=== PATIENT | male | born 1955 | race African-American/Black ===

== ENCOUNTER 2020-04-22 08:02 | Outpatient (CLI) | payer OTHER ==
--- NOTE | 2020-04-22 14:23 | RAD ---
EXAM: Chest 2 views: HISTORY: Preoperative radiograph COMPARISON: None. FINDINGS: There is a normal-sized cardiomediastinal silhouette. There is no evidence of consolidation, mass, or pleural effusion. The bones are unremarkable. IMPRESSION: No evidence of acute cardiopulmonary disease
[2020-04-22 16:17] LABS: Hemoglobin 13.3 g/dL (14.0-18.0); Mean Corpuscular HGB CONC 32.9 g/dL (32.0-36.0); Mean Corpuscular Hemoglobin 26.2 pg (27.0-31.0); Mean Corpuscular Volume 79.8 fL (78.0-98.0); Mean Platelet Volume 10.8 fL (7.4-10.4); Platelet Count 208 thou/uL (130-400); RBC Distribution Width 13.2 % (11.5-14.5); Red Blood Cell (RBC) Count 5.08 mill/uL (4.70-6.10); White Blood Cell (WBC) Count 7.6 thou/uL (4.8-10.8)
[2020-04-22 16:26] LABS: Anion Gap 13 mmol/L (10-20); BUN (Urea Nitrogen) 20 mg/dL (8.4-25.7); Calc. Creatinine Clearance 0 mL/min (70-130); Calcium 8.5 mg/dL (7.8-10.44); Carbon Dioxide 24 mmol/L (23-31); Chloride 108 mmol/L (98-107); Estimated GFR-MDRD 61; Glucose 97 mg/dL (80-115); Potassium 3.7 mmol/L (3.5-5.1); Sodium 141 mmol/L (136-145)
== END 2020-04-22 08:03 | disposition home or self-care (01) ==
LOC: LABBT 08:02
PROVIDERS: ATTEND Thoracic Surgery (Cardiothoracic Vascular Surgery)
DX: Z01.818 Encounter for other preprocedural examination (principal); Z11.59 Encounter for screening for other viral diseases; I25.10 Atherosclerotic heart disease of native coronary artery without angina pectoris
CPT/HCPCS: 71046; 80048; 85027; 86850; 86900; 86901; 87635; U0003

== ENCOUNTER 2020-04-22 13:15 | Inpatient (IN) | payer OTHER ==
[2020-04-23 11:34] LABS: SARS-CoV-2 MS2 Positive; SARS-CoV-2 N Gene Negative; SARS-CoV-2 S Gene Negative; SARS-CoV-2 orf1ab Negative
[2020-04-27] MEDS ORDERED: Fentanyl 100 MCG/2 ML VIAL ONE (06:30)
[2020-04-27] MEDS ORDERED: Midazolam HCl 2 mg/2 ml Vial ONE (06:30)
[2020-04-27] MEDS ORDERED: Vecuronium 10 MG VIAL ONE ×3 (06:31→11:41)
[2020-04-27] MEDS ORDERED: Dexmedetomidine 200 MCG/2 ML VIAL ONE (06:31)
[2020-04-27] MEDS ORDERED: Midazolam HCl 5 mg/5 ml Vial ONE (06:31)
[2020-04-27] MEDS ORDERED: Albumin 5% 500 ML ONE (06:34)
[2020-04-27] MEDS ORDERED: Heparin 10,000 UNITS/1 ML VIAL 30,000 UNITS in Sodium Chloride 0.9% 1,000 ML FS SCH (06:45)
[2020-04-27] MEDS ORDERED: HYDROcodone/Acetaminophen 5/325 mg Tablet PO PRN (07:20)
[2020-04-27] MEDS ORDERED: Bisacodyl 10 MG SUPP PR PRN (07:20)
[2020-04-27] MEDS ORDERED: niCARdipine 25 MG in Sodium Chloride 0.9% 250 ML 250 ML IVPB PRN (07:20)
[2020-04-27] MEDS ORDERED: Fentanyl 100 MCG/2 ML VIAL SLOW IVP PRN ×2 (07:20)
[2020-04-27] MEDS ORDERED: Guaifenesin DM 100-10/5 ML UDCUP PO PRN (07:20)
[2020-04-27] MEDS ORDERED: Promethazine HCl 25 MG/ML VIAL IM PRN (07:20)
[2020-04-27] MEDS ORDERED: Ondansetron PF 4 MG/2 ML Vial IVP PRN (07:20)
[2020-04-27] MEDS ORDERED: Bisacodyl 5 MG TAB PO PRN (07:20)
[2020-04-27] MEDS ORDERED: Hetastarch 6% 500 ML 500 ML IVPB PRN (07:20)
[2020-04-27] MEDS ORDERED: Mag-Al 1200 mg/1200 mg/30 ML UDCUP PO PRN (07:20)
[2020-04-27] MEDS ORDERED: hydrALAZINE 20 MG/ML VIAL SLOW IVP PRN (07:20)
[2020-04-27] MEDS ORDERED: Morphine 2 MG/ML SYRINGE SLOW IVP PRN (07:20)
[2020-04-27] MEDS ORDERED: Norepinephrine 8 MG/0.9% NS 250 ML IVPB PRN (07:20)
[2020-04-27] MEDS ORDERED: Post-Op Insulin Drip Protocol IVPB ONE (07:20)
[2020-04-27] MEDS ORDERED: Nitroglycerin 50 MG/250 ML BOT 250 ML IVPB PRN (07:20)
[2020-04-27] MEDS ORDERED: Acetaminophen 325 MG TAB PO PRN (07:20)
[2020-04-27] MEDS ORDERED: HUMULIN R 100 UNITS in Sodium Chloride 0.9% 100 ML IVPB SCH (07:41)
[2020-04-27] MEDS ORDERED: Dextrose 50% Abboject 50 ML SYRINGE SLOW IVP PRN (07:41)
[2020-04-27] MEDS ORDERED: Dextrose 5% in Water 1,000 ML IV PRN (07:41)
[2020-04-27] MEDS ORDERED: Calcium Chloride 1 GM/10 ML Abboject SYRINGE ONE ×2 (08:40→11:41)
[2020-04-27] MEDS ORDERED: Aspirin 81 mg Enteric Coated Tablet PO SCH (09:00)
[2020-04-27] MEDS ORDERED: PHENYLEPHRINE-NS 100 MCG/ML 10 ML SYRINGE ONE ×2 (10:38→11:41)
[2020-04-27] MEDS ORDERED: Cardioplegic Soln 1,000 ML BAG ONE (11:41)
[2020-04-27] MEDS ORDERED: Nitroglycerin 50 MG/250 ML BOT ONE (11:41)
[2020-04-27] MEDS ORDERED: Thrombin 5000 UNITS/5 ML VIAL ONE (11:41)
[2020-04-27] MEDS ORDERED: Papaverine 60 MG/2 ML VIAL ONE (11:41)
[2020-04-27] MEDS ORDERED: Potassium Chloride 60 MEQ/30 ML VIAL ONE (11:41)
[2020-04-27] MEDS ORDERED: Lidocaine 2% PF 5 ML VIAL ONE (11:41)
[2020-04-27] MEDS ORDERED: Aminocaproic Acid 5 GM/20 ML VIAL ONE (11:41)
[2020-04-27] MEDS ORDERED: Glycopyrrolate 0.2 MG/ML 5 ML SYRINGE ONE (11:41)
[2020-04-27] MEDS ORDERED: Magnesium Sulfate 1 GM/2 ML VIAL ONE (11:41)
[2020-04-27] MEDS ORDERED: Heparin 30,000 units/30 ml VIAL ONE (11:41)
[2020-04-27] MEDS ORDERED: EPHEDRINE 25 MG/5 ML SYRINGE ONE (11:41)
[2020-04-27] MEDS ORDERED: Protamine Sulfate 250 MG/25 ML VIAL ONE (11:41)
[2020-04-27] MEDS ORDERED: Lidocaine 1% PF 5 ML VIAL ONE ×2 (11:41)
[2020-04-27] MEDS ORDERED: Ketorolac Tromethamine 30 MG/ML VIAL ONE (11:41)
[2020-04-27] MEDS ORDERED: Ondansetron PF 4 MG/2 ML Vial ONE (11:41)
[2020-04-27] MEDS ORDERED: Heparin 5,000 UNITS/ML VIAL ONE (11:41)
[2020-04-27] MEDS ORDERED: Sodium Bicarb 50 MEQ/50 ML Abboject 8.4% SYRINGE ONE (11:41)
[2020-04-27] MEDS: Aspirin Chewable 81 MG TAB PO SCH (12:13)
[2020-04-27] MEDS: Famotidine/PF 20 mg/2ml Vial SLOW IVP SCH ×2 (12:13→20:04)
[2020-04-27] MEDS: Ferrous Sulfate 325 MG TAB PO SCH (12:13)
[2020-04-27] MEDS: Docusate 100 MG CAP PO SCH ×2 (12:13→20:05)
[2020-04-27 12:53] LABS: #Eosinphils 0.1 thou/uL (0.0-0.7); #Lymphocytes 0.9 thou/uL (1.20-3.40); #Monocytes 1.2 thou/uL (0.11-0.59); #Neutrophils 12.6 thou/uL (1.40-6.50); %Basophils 0.1 % (0.0-1.0); %Eosinophils 0.6 % (0.0-10.0); %Lymphocytes 6.3 % (21.0-51.0); %Monocytes 8.3 % (0.0-10.0); %Neutrophils 84.7 % (42.0-75.0); Hemoglobin 11.5 g/dL (14.0-18.0); Mean Corpuscular HGB CONC 32.5 g/dL (32.0-36.0); Mean Corpuscular Volume 80.1 fL (78.0-98.0); Platelet Count 147 thou/uL (130-400); RBC Distribution Width 13.1 % (11.5-14.5); Red Blood Cell (RBC) Count 4.43 mill/uL (4.70-6.10); White Blood Cell (WBC) Count 14.9 thou/uL (4.8-10.8)
--- NOTE | 2020-04-27 12:58 | RAD ---
Chest AP view INDICATION: Status post open-heart surgery COMPARISON: April 22, 2020 FINDINGS: Lungs: There are areas of subsegmental volume loss involving the left upper and left lower lobe. Rig ht lung is clear. Cardiac silhouette: There is mild cardiomegaly. There is new midline sternotomy wires. There is a mi dline mediastinal drain. There is a new left subclavian central venous catheter. Pulmonary vasculature: Normal Pleural spaces: No pleural effusion or pneumothorax is demonstrated. Upper abdomen: No abnormality seen. Osseous structures: No acute osseous abnormality. Additional findings: None. IMPRESSION: Postoperative chest. No definite pneumothorax. Stable mild cardiomegaly. Areas of subsegmental volume loss in the left lung.
[2020-04-27 13:01] LABS: INR-International Normal Ratio 1.2; Prothrombin Time 15.2 sec (12.0-14.7)
[2020-04-27 13:02] LABS: PTT 41.4 sec (22.9-36.1)
[2020-04-27] MEDS: Sodium Chloride 0.9% 1,000 ML IV SCH ×2 (13:04→20:04)
[2020-04-27] MEDS: Insulin Regular 300 UNITS/3 ML VIAL SC PRN ×2 (13:16→20:04)
[2020-04-27 13:25] LABS: Anion Gap 11 mmol/L (10-20); BUN (Urea Nitrogen) 18 mg/dL (8.4-25.7); Calc. Creatinine Clearance 79 mL/min (70-130); Calcium 8.3 mg/dL (7.8-10.44); Carbon Dioxide 25 mmol/L (23-31); Chloride 110 mmol/L (98-107); Estimated GFR-MDRD 59; Glucose 125 mg/dL (80-115); Sodium 142 mmol/L (136-145)
[2020-04-27 13:28] VITALS: BMI 31.1
[2020-04-27] MEDS: Potassium Chloride 20 MEQ/100 ML PREMIX BAG IVPB PRN (14:14)
[2020-04-27 18:47] LABS: Hemoglobin 10.8 g/dL (14.0-18.0)
[2020-04-27 18:57] LABS: Potassium 4.1 mmol/L (3.5-5.1)
[2020-04-27] MEDS: HYDROcodone/Acetaminophen 5/325 mg Tablet PO PRN ×2 (19:16→23:34)
--- NOTE | 2020-04-27 20:57 | OP ---
DATE OF PROCEDURE: 04/27/2020 PROCEDURES PERFORMED: Coronary artery bypass grafting x4 with left internal mammary artery to the distal left anterior descending artery, sequential reverse greater saphenous vein graft from the aorta to the first diagonal to the posterolateral obtuse marginal 2 and separate reverse greater saphenous vein graft from the aorta to the posterior descending artery. PREOPERATIVE DIAGNOSIS: Coronary artery disease. POSTOPERATIVE DIAGNOSIS: Coronary artery disease. MANAGER COLLECTION: Deep Kelley MD ANESTHESIA: General endotracheal anesthesia. INDICATIONS: The patient is a 64-year-old former smoker with known coronary artery disease, having undergone previous stenting of his LAD. He has severe hypertension, and on a routine checkup recently, he was noted to be somewhat bradycardic prompting referral back to Cardiology. An outpatient potline monitor showed occasional PVCs and some nonsustained supraventricular tachycardia, but a good left ventricular ejection fraction on nuclear stress testing. There was a small reversible defect anteriorly, but on cardiac catheterization, he had diffuse coronary artery disease including a high-grade cleft like lesion fairly proximally in the LAD where both the first septal dehydration unit operator and a large first diagonal arose. He is now taken to the operating room for surgical revascularization. FINDINGS: Pump time 95 minutes, cross-clamp time 60 minutes. Good quality CARMEN and saphenous vein. All of his coronaries were diffusely diseased, particularly the diagonal and the PDA. The LAD was about a 1.5 to 2 mm vessel distally. The diagonal was about a 1.5 to 2 mm vessel proximally, but distally it tapered down to about a 1 mm lumen. The OM was about a 1.5 mm vessel. The heart was very large. DESCRIPTION OF PROCEDURE: After informed consent was obtained, the patient was taken to the operating room, placed in the supine position on the operating table. After the induction of general anesthesia, the patient's left greater saphenous vein was ultrasonographically mapped and marked. His left chest was prepped and draped in sterile fashion, and he was placed in Trendelenburg. A triple-lumen central line kit was used to place a left subclavian central line by the Seldinger technique. All 3 ports were aspirated and flushed easily. The line was secured to the skin with suture. The patient's torso, groins, and lower extremities were prepped and draped in sterile fashion. The greater saphenous vein was exposed just above the knee on the left side and then endoscopically harvested from about the groin to the mid-calf using stab incisions for the proximal and distal ligation and division point. The vein was prepared for use as a graft, and the port site was closed in layers of subcutaneous and subcuticular Vicryl. A median sternotomy was performed. The left internal mammary artery was mobilized as a skeletonized in-situ graft from the level of the xiphoid to the level of the subclavian vein through an extrapleural exposure. The patient was heparinized. The mammary was ligated and divided distally. There was good flow through the mammary, and it dilated nicely with the instillation of intraluminal papaverine solution. A few areas of small violations of the pleura anteriorly toward the diaphragmatic surface were repaired with 6-0 Prolene suture, and the medial reflections of the pleura were mobilized. The mammary bed was inspected for hemostasis. An CARMEN retractor was placed with a Agosto retractor. The pericardium was opened and marsupialized. The aorta was palpated and was soft. A double concentric pursestring of 2-0 Ethibond was placed in the ascending aorta just beyond the pericardial reflection, and a single pursestring was placed in the right atrial appendage. Aortic and venous cannulae were inserted and secured by their pursestrings. Cardiopulmonary bypass was instituted, and the patient was systemically cooled. The plane between the aorta and the pulmonary artery was developed. A longitudinal slit was made in the pericardium anterior to the left phrenic nerve, through which the mammary could be passed. The heart was examined. The vessel to be bypassed was identified. An aortic cross-clamp was applied, and cardioplegia was administered through an aortic root needle. The PDA was exposed and had to be opened fairly distally to get beyond hard to plaquing. The greater saphenous vein was reversed and anastomosed there end-to-side with running Prolene suture, and the anastomosis was tested by flushing cold saline down the graft. Attention was then turned to the posterolateral aspect of the heart. The OM2 was exposed and opened and grafted end-to-side with saphenous vein and running Prolene suture. There was not sufficient vein to separately graft the diagonal, and it was opted to construct a sequential graft. The diagonal was opened, and a corresponding longitudinal venotomy was made in the OM graft, and a [id number] anastomosis was constructed orienting the anastomosis perpendicular to the axis of the coronary and using a 1 mm probe to identify the lumen of the coronary at the toe. The LAD was then opened, and the mammary was divided just at its bifurcation, spatulated and anastomosed to the LAD end-to-side with running 7-0 Prolene, it was tacked to the epicardium. The aortic cross-clamp was replaced with a partial occluding clamp, and two aortotomies were made in the ascending aorta with a scalpel and punch. The PDA graft was anastomosed to the more proximal aortotomy, and the sequential diagonal OM graft was anastomosed to the more distal aortotomy. The partial occluding clamp was removed, and the vein grafts were de-aired. The bulldogs were removed from them. The anastomoses were inspected for hemostasis. The proximal vein graft anastomoses were marked with small hemoclips. The posterior pericardial drain was brought out through a separate incision and secured with suture. Right atrial and right ventricular temporary epicardial pacing wires were placed with the use of pacing. The patient was then from cardiopulmonary bypass. Aortic and venous cannulae were removed, and the pursestring was secured. Protamine was administered. When hemostasis was adequate, an anterior mediastinal drain was placed. It was not feasible to perform a formal closure of the pericardium because of the size of the heart. The mediastinal and pericardial fat were draped across the aorta on the anterior surface of the heart and tacked to the right side of the pericardium superiorly and at the diaphragmatic surface. The cut surfaces of the sternum were treated with vancomycin paste and platelet-rich GPS. Sternum was reapproximated with #7 stainless steel wires. Soft tissues were irrigated and treated with platelet-poor GPS. The fascia was closed over the wires with running #1 Vicryl. Subcutaneous tissue was reapproximated with running 2-0 Vicryl, and skin was closed with running 3-0 Vicryl subcuticular suture. Dermabond dressings were applied, and the patient was awakened and extubated in the operating room, and taken to the intensive care in stable condition. Job ID: [id number]
[2020-04-28 04:11] LABS: #Lymphocytes 1.1 thou/uL (1.20-3.40); #Monocytes 1.2 thou/uL (0.11-0.59); #Neutrophils 8.2 thou/uL (1.40-6.50); %Basophils 0.3 % (0.0-1.0); %Eosinophils 0.1 % (0.0-10.0); %Lymphocytes 10.5 % (21.0-51.0); %Monocytes 11.2 % (0.0-10.0); Hemoglobin 9.7 g/dL (14.0-18.0); Mean Corpuscular HGB CONC 31.8 g/dL (32.0-36.0); Mean Corpuscular Hemoglobin 25.4 pg (27.0-31.0); Mean Platelet Volume 10.7 fL (7.4-10.4); Platelet Count 152 thou/uL (130-400); RBC Distribution Width 13.2 % (11.5-14.5); Red Blood Cell (RBC) Count 3.81 mill/uL (4.70-6.10); White Blood Cell (WBC) Count 10.6 thou/uL (4.8-10.8)
[2020-04-28 04:31] LABS: Anion Gap 13 mmol/L (10-20); BUN (Urea Nitrogen) 24 mg/dL (8.4-25.7); Calc. Creatinine Clearance 68 mL/min (70-130); Calcium 7.6 mg/dL (7.8-10.44); Carbon Dioxide 23 mmol/L (23-31); Chloride 110 mmol/L (98-107); Estimated GFR-MDRD 48; Glucose 108 mg/dL (80-115); Potassium 3.8 mmol/L (3.5-5.1); Sodium 142 mmol/L (136-145)
[2020-04-28] MEDS: Potassium Chloride 20 MEQ/100 ML PREMIX BAG IVPB PRN (04:51)
--- NOTE | 2020-04-28 07:47 | RAD ---
EXAM: Single view of the chest HISTORY: Status post open heart surgery COMPARISON: 04/27/2020 FINDINGS: Single view of the chest shows an enlarged but stable cardiomediastinal silhouette. The pa tient is status post sternotomy. The chest tubes and central catheter are unchanged in position. There appears to be atelectasis in the left lung base. The bones are unremarkable. IMPRESSION: Left basilar atelectasis
[2020-04-28] MEDS: Aspirin Chewable 81 MG TAB PO SCH (08:43)
[2020-04-28] MEDS: Famotidine/PF 20 mg/2ml Vial SLOW IVP SCH (08:43)
[2020-04-28] MEDS: Sodium Chloride 0.9% 1,000 ML IV SCH ×3 (08:43→20:40)
[2020-04-28] MEDS: Ferrous Sulfate 325 MG TAB PO SCH (08:43)
[2020-04-28] MEDS: Docusate 100 MG CAP PO SCH ×2 (08:43→20:40)
[2020-04-28] MEDS ORDERED: diphenhydrAMINE 25 MG CAP PO PRN (11:08)
[2020-04-28] MEDS ORDERED: Mineral Oil ENEMA PR PRN (11:08)
[2020-04-28] MEDS ORDERED: Zolpidem Tartrate 5 MG TAB PO PRN (11:08)
[2020-04-28] MEDS ORDERED: Artificial Tears 18 DROP/0.9 ML EA EYE PRN (11:08)
[2020-04-28] MEDS ORDERED: Nitroglycerin 0.4 MG TAB (25 Tab Bottle) SL PRN (11:08)
[2020-04-28] MEDS ORDERED: Guaifenesin DM 100-10/5 ML UDCUP PO PRN (11:08)
[2020-04-28] MEDS ORDERED: Bisacodyl 10 MG SUPP PR PRN (11:08)
[2020-04-28] MEDS ORDERED: Bisacodyl 5 MG TAB PO PRN (11:08)
[2020-04-28] MEDS ORDERED: Mag-Al 1200 mg/1200 mg/30 ML UDCUP PO PRN (11:08)
[2020-04-28] MEDS: HYDROcodone/Acetaminophen 5/325 mg Tablet PO PRN (12:39)
[2020-04-28] MEDS: Morphine 2 MG/ML SYRINGE SLOW IVP PRN ×2 (16:52→20:41)
--- NOTE | 2020-04-28 17:46 | EKG ---
Test Reason : POST CABG Blood Pressure : / mmHG Vent. Rate : 046 BPM Atrial Rate : 046 BPM P-R Int : 204 ms QRS Dur : 124 ms QT Int : 470 ms P-R-T Axes : 060 -06 068 degrees QTc Int : 411 ms Marked sinus bradycardia Non-specific intra-ventricular conduction delay Nonspecific T wave abnormality Abnormal ECG When compared with ECG of 26-NOV-2014 19:40, No significant change was found Confirmed by DR. Fede MCINTYRE ([id number]) on 04/28/2020 5:46:25 PM Referred By: TANNER Confirmed By:DR. Fede MCINTYRE
[2020-04-28] MEDS: Carvedilol 3.125 MG TAB PO SCH (20:40)
[2020-04-29] MEDS: Morphine 2 MG/ML SYRINGE SLOW IVP PRN ×3 (01:16→08:48)
[2020-04-29 04:35] LABS: #Eosinphils 0.1 thou/uL (0.0-0.7); #Lymphocytes 1.7 thou/uL (1.20-3.40); #Monocytes 1.4 thou/uL (0.11-0.59); #Neutrophils 7.8 thou/uL (1.40-6.50); %Basophils 0.2 % (0.0-1.0); %Eosinophils 0.7 % (0.0-10.0); %Lymphocytes 15.4 % (21.0-51.0); %Monocytes 12.8 % (0.0-10.0); %Neutrophils 70.9 % (42.0-75.0); Hemoglobin 9.9 g/dL (14.0-18.0); Mean Corpuscular HGB CONC 31.3 g/dL (32.0-36.0); Mean Corpuscular Hemoglobin 25.1 pg (27.0-31.0); Mean Corpuscular Volume 80.3 fL (78.0-98.0); Mean Platelet Volume 10.2 fL (7.4-10.4); Platelet Count 167 thou/uL (130-400); RBC Distribution Width 13.3 % (11.5-14.5); Red Blood Cell (RBC) Count 3.93 mill/uL (4.70-6.10)
[2020-04-29 05:14] LABS: Anion Gap 11 mmol/L (10-20); BUN (Urea Nitrogen) 22 mg/dL (8.4-25.7); Calc. Creatinine Clearance 83 mL/min (70-130); Calcium 7.8 mg/dL (7.8-10.44); Carbon Dioxide 24 mmol/L (23-31); Chloride 110 mmol/L (98-107); Estimated GFR-MDRD 60; Glucose 104 mg/dL (80-115); Potassium 4.1 mmol/L (3.5-5.1); Sodium 141 mmol/L (136-145)
--- NOTE | 2020-04-29 05:47 | CON ---
DATE OF CONSULTATION: 04/28/2020 REASON FOR CONSULTATION: Status post CABG. PRIMARY COLLAR STARCHER: Dong Mi MD HISTORY OF PRESENT ILLNESS: Mr. Allen is a pleasant 64-year-old white gentleman, who comes to the hospital for a planned bypass. He had been seen in the office for angina, which consisted of shortness of breath with minimal exertion and he underwent heart catheterization that showed severe multivessel disease, so he was referred to Cardiothoracic Surgery. Dr. Giles evaluated him and did a 4-vessel bypass yesterday. He had a LOUIE to the LAD. He had a sequential vein graft to a first diagonal and to the posterior lateral obtuse marginal and another vein graft to a posterior descending artery and another vein graft to another posterior descending artery. He did well. He states that since the surgery, he feels a lot better. He was able to walk all the way down to the end of the [place]rews. In the past, he would give out very easily. He is very happy with the results. He still has the chest tubes in. Just admits some chest soreness. He has been passing gas, but no bowel movement yet. He is on postoperative day 2. PAST MEDICAL HISTORY: 1. Hypertension. 2. Diverticular disease. 3. Allergic rhinitis. 4. Sams's palsy. 5. Coronary artery disease as above. PAST SURGICAL HISTORY: Left heart catheterization, previous stent to the LAD in 2014. OUTPATIENT MEDICATIONS: 1. Aspirin 81 a day. 2. Lisinopril 40 mg a day. 3. Coreg 12.5 b.i.d. 4. Amlodipine 10 mg a day. 5. Centrum Silver multivitamin. 6. Crestor mg a day. 7. Escitalopram 10 mg a day. 8. Hydralazine 100 mg t.i.d. ALLERGIES: NO KNOWN DRUG ALLERGIES. SOCIAL HISTORY: Former smoker. No alcohol. No drugs. FAMILY HISTORY: Young brother with open-heart surgery. PHYSICAL EXAMINATION: VITAL SIGNS: Temperature 98.7, pulse 60, respiratory rate 93, sat 96% on room air, and blood pressure 155/67. GENERAL: Awake, alert, and oriented x3, in no distress. HEENT: Normocephalic and atraumatic. NECK: Supple. LUNGS: Clear. CARDIOVASCULAR: S1 and S2. No S3 or S4. No murmurs. ABDOMEN: Mildly distended, but not tender. No rebound or guarding. Bowel sounds are distant, but present. EXTREMITIES: 1+ edema in the right leg, where the veins were harvested. Otherwise, no edema. SKIN: Warm and dry. LABORATORY DATA: Laboratory work was reviewed. White count of 14 down to 10; hemoglobin 9.7 down from 11.5; and platelet count 152. Coags were normal. Chemistries were unremarkable except for creatinine of 1.74, which is higher than yesterday 1.47. COVID-19 PCR was not detected. This was prior to admission. Chest x-ray was reviewed. ASSESSMENT: 1. Coronary artery disease. 2. Status post coronary artery bypass grafting x4. 3. Hypertension. PLAN: 1. Continue medical therapy for now. 2. Increase physical therapy once chest tubes come out. 3. Aspirin and statin for life. 4. We will add beta-sergio and EARLINE inhibitor to his regimen. His blood pressure is usually difficult to control. 5. Await bowel movement as he is a little distended, hopefully this will not be an issue. Thank you for letting us participate in the care of your patient. We will follow. Job ID: [id number]
[2020-04-29] MEDS: Sodium Chloride 0.9% 1,000 ML IV SCH (07:32)
--- NOTE | 2020-04-29 07:49 | RAD ---
EXAM: Single view of the chest HISTORY: Status post CABG COMPARISON: 04/28/2020 FINDINGS: Single view of the chest shows an enlarged but stable cardiomediastinal silhouette. The pa tient is status post sternotomy. The lines and tubes are unchanged in position. No pneumothorax is seen. There is no evidence of consolidation, mass, or pleural effusion. The bones are unremarkable. IMPRESSION: Stable exam
[2020-04-29] MEDS: Carvedilol 3.125 MG TAB PO SCH (08:48)
[2020-04-29] MEDS: Docusate 100 MG CAP PO SCH ×2 (08:48→20:36)
[2020-04-29] MEDS: Aspirin Chewable 81 MG TAB PO SCH (08:48)
[2020-04-29] MEDS: Ferrous Sulfate 325 MG TAB PO SCH (08:48)
[2020-04-29 11:28] LABS: Actual Bicarbonate (HCO3a) 25.9 mEq/L (22-28); Analyzer IN Cardio OR; Base Excess (BEa) 0.1 mEq/L (-2.0 to +3.0); CO2 Tension 47.2 mmHg (35.0-45.0); Calcium, Ionized (arterial) 1.13 mmol/L (1.12-1.30); Carboxyhemoglobin (COHb) 0.6 gm% (0.0-3.0); Hemoglobin (Hb) 12.5 g/dL (14.0-18.0); O2 Tension (PaO2), arterial 102.3 mmHg (> 80.0); Potassium - ABG Lab 3.78 mmol/L (3.70-5.30); pH, Arterial 7.36 (7.35-7.45)
[2020-04-29 11:29] LABS: Actual Bicarbonate (HCO3a) 24.2 mEq/L (22-28); Analyzer IN Cardio OR; Base Excess (BEa) -0.6 mEq/L (-2.0 to +3.0); CO2 Tension 40.4 mmHg (35.0-45.0); Calcium, Ionized (arterial) 1.04 mmol/L (1.12-1.30); Carboxyhemoglobin (COHb) 0.3 gm% (0.0-3.0); Hemoglobin (Hb) 10.5 g/dL (14.0-18.0); O2 Tension (PaO2), arterial 310.1 mmHg (> 80.0); Potassium - ABG Lab 4.41 mmol/L (3.70-5.30)
[2020-04-29 11:29] LABS: Actual Bicarbonate (HCO3a) 25.3 mEq/L (22-28); Analyzer IN Cardio OR; Base Excess (BEa) -0.4 mEq/L (-2.0 to +3.0); CO2 Tension 45.9 mmHg (35.0-45.0); Carboxyhemoglobin (COHb) 0.8 gm% (0.0-3.0); Hemoglobin (Hb) 12.3 g/dL (14.0-18.0); Potassium - ABG Lab 3.49 mmol/L (3.70-5.30); pH, Arterial 7.36 (7.35-7.45)
[2020-04-29 11:29] LABS: Actual Bicarbonate (HCO3a) 24.5 mEq/L (22-28); Analyzer IN Cardio OR; Base Excess (BEa) 0.4 mEq/L (-2.0 to +3.0); CO2 Tension 37.5 mmHg (35.0-45.0); Calcium, Ionized (arterial) 0.99 mmol/L (1.12-1.30); Carboxyhemoglobin (COHb) 0.1 gm% (0.0-3.0); Hemoglobin (Hb) 9.8 g/dL (14.0-18.0); O2 Tension (PaO2), arterial 320.2 mmHg (> 80.0); Potassium - ABG Lab 4.34 mmol/L (3.70-5.30); pH, Arterial 7.43 (7.35-7.45)
[2020-04-29 11:30] LABS: Actual Bicarbonate (HCO3a) 24.7 mEq/L (22-28); Analyzer IN Cardio OR; Base Excess (BEa) -0.3 mEq/L (-2.0 to +3.0); Calcium, Ionized (arterial) 1.01 mmol/L (1.12-1.30); Carboxyhemoglobin (COHb) 0.2 gm% (0.0-3.0); Hemoglobin (Hb) 9.9 g/dL (14.0-18.0); O2 Tension (PaO2), arterial 266.7 mmHg (> 80.0); Potassium - ABG Lab 4.31 mmol/L (3.70-5.30); pH, Arterial 7.39 (7.35-7.45)
[2020-04-29 11:30] LABS: Actual Bicarbonate (HCO3v) 26 mEq/L (22-28); Analyzer IN Cardio OR; Base Excess 0.6 mEq/L (-2.0 to +3.0); Calcium, Ionized (venous) 1.02 mmol/L (1.16-1.32); Chloride (ABG LAB) 106 mmol/L (98-106); Hemoglobin (Hb) 9.8 g/dL (13.1-17.2); Potassium - ABG Lab 4.33 mmol/L (3.70-5.30); Sodium 139.2 mmol/L (133-146)
[2020-04-29 11:30] LABS: Actual Bicarbonate (HCO3a) 24.5 mEq/L (22-28); Analyzer IN Cardio OR; Base Excess (BEa) -1.3 mEq/L (-2.0 to +3.0); CO2 Tension 45.7 mmHg (35.0-45.0); Calcium, Ionized (arterial) 1.14 mmol/L (1.12-1.30); Carboxyhemoglobin (COHb) 0.6 gm% (0.0-3.0); Hemoglobin (Hb) 11.2 g/dL (14.0-18.0); O2 Tension (PaO2), arterial 332.5 mmHg (> 80.0); Potassium - ABG Lab 3.88 mmol/L (3.70-5.30); pH, Arterial 7.35 (7.35-7.45)
[2020-04-29 11:31] LABS: Puncture Site ALINE
[2020-04-29 11:31] LABS: Puncture Site ALINE
[2020-04-29 11:35] LABS: Puncture Site ALINE
[2020-04-29 11:36] LABS: Puncture Site ALINE
[2020-04-29 11:37] LABS: Puncture Site ALINE
[2020-04-29 11:37] LABS: Puncture Site ALINE
[2020-04-29] MEDS: HYDROcodone/Acetaminophen 5/325 mg Tablet PO PRN ×2 (11:59→19:23)
--- NOTE | 2020-04-29 14:40 | PDOC.CPN ---
- Subjective Date: 04/29/20 Time: 14:38 Interval history: He is doing well. He had his chest tubes out earlier today and feels better. Passing gas but no BM yet. - Review of Systems General: denies: fever/chills, weight/appetite/sleep changes, night sweats, fatigue Respiratory: denies: cough, congestion, shortness of breath, exercise intolerance Cardiovascular: denies: chest pain, palpitation, edema, paroxysmal nocturnal dyspnea, orthopnea Gastrointestinal: denies: nausea, vomiting, diarrhea, constipation, abd pain, GI bleeding Musculoskeletal: denies: pain, tenderness, stiffness, swelling, arthritis/ arthralgias Neurological: denies: numbness, syncope, seizure, weakness - Objective Allergies/Adverse Reactions: Allergies Allergy/AdvReac Type Severity Reaction Status Date / Time clonidine Allergy Verified 04/21/20 19:44 Visit Medications: Current Medications Hydrocodone Bitart/Acetaminophen ([place] 5/325) 1 tab PO Q4H PRN PRN Reason: Moderate Pain (4-6) Hydrocodone Bitart/Acetaminophen ([place] 5/325) 2 tab PO Q4H PRN PRN Reason: Severe Pain (7-10) Last Admin: 04/29/20 11:59 Dose: 2 tab Al Hydroxide/Mg Hydroxide (Maalox) 30 ml PO Q4H PRN PRN Reason: Indigestion Albuterol/Ipratropium (Duoneb) 3 ml NEB [id number] PRN PRN Reason: SHORTNESS OF BREATH Artificial Tears (Tears Naturale) 0 drop EA EYE PRN PRN PRN Reason: Dry Eyes Aspirin (Aspirin Chewable) 81 mg PO DAILY [facility] Last Admin: 04/29/20 08:48 Dose: 81 mg Bisacodyl (Dulcolax) 10 mg PO Q12H PRN PRN Reason: Constipation Bisacodyl (Dulcolax) 10 mg MT Q12H PRN PRN Reason: Constipation Carvedilol (Coreg) 6.25 mg PO BID-[facility] Diphenhydramine HCl (Benadryl) 25 mg PO Q6H PRN PRN Reason: Itching & Insomnia or Tito Manuel Docusate Sodium (Colace) 100 mg PO BID [facility] Last Admin: 04/29/20 08:48 Dose: 100 mg Ferrous Sulfate (Feosol) 325 mg PO QAM-[facility] Last Admin: 04/29/20 08:48 Dose: 325 mg Guaifenesin/Dextromethorphan (Robitussin Dm) 15 ml PO Q4H PRN PRN Reason: Cough Mineral Oil (Fleet Mineral Oil) 133 ml MT DAILYPRN PRN PRN Reason: Constipation Morphine Sulfate (Morphine) 2 mg SLOW IVP Q4H PRN PRN Reason: Breakthrough Pain Last Admin: 04/29/20 08:48 Dose: 2 mg Nitroglycerin (Nitrostat) 0.4 mg SL Q5MIN PRN PRN Reason: Chest Pain Ondansetron HCl (Zofran) 4 mg IVP Q6H PRN PRN Reason: Nausea/Vomiting Sodium Chloride (Flush - Normal Saline) 10 ml IVF Q12HR [facility] Last Admin: 04/29/20 08:59 Dose: Not Given Zolpidem Tartrate (Ambien) 5 mg PO HSPRN PRN PRN Reason: Insomnia Vital Signs & Weight: Vital Signs Temp Pulse Pulse Pulse Pulse Resp BP 04/29/20 11:47 99.0 F 75 18 04/29/20 10:36 84 81 84 192/86 H 04/29/20 07:26 98.9 F 86 18 04/29/20 03:37 98.3 F 70 20 BP BP BP Pulse Ox Pulse Ox Pulse Ox Pulse Ox 04/29/20 11:47 174/76 H 96 04/29/20 10:36 160/81 H 173/82 H 95 95 95 04/29/20 07:26 183/86 H 94 L 04/29/20 03:37 154/79 H 96 Weight 247 lb 3.2 oz - Physical Exam General: alert & oriented x3 HEENT: mucus membranes moist Neck: supple neck Cardiac: regular rate and rhythm Lungs: clear to auscultation Neuro: grossly intact Abdomen: active bowel sounds Extremities: no edema Skin: clear Musculoskeletal: no pain - Labs Result Diagrams: 04/29/20 04:21 04/29/20 04:21 - Telemetry Sinus rhythms and dysrhythmias: sinus rhythm - Assessment/Plan Assessment/Plan: 1. Multivessel CAD. 2. S/P CABG x 4 3. HTN PLAN: - Continue PT and increase as tolerated. - Will restart ACEI lisinopril at 10 mg, he uses 40 mg at home. - Continue current BB dose. - Will restart home BP meds if it remains high. - Will follow.
[2020-04-29] MEDS ORDERED: Lisinopril 10 MG TAB PO SCH (14:45)
[2020-04-29] MEDS: Carvedilol 6.25 MG TAB PO SCH (17:17)
[2020-04-30] MEDS: HYDROcodone/Acetaminophen 5/325 mg Tablet PO PRN ×4 (02:21→21:36)
[2020-04-30 04:52] LABS: #Basophils 0.1 thou/uL (0.0-0.2); #Eosinphils 0.2 thou/uL (0.0-0.7); #Lymphocytes 1.2 thou/uL (1.20-3.40); #Monocytes 1.3 thou/uL (0.11-0.59); %Basophils 0.6 % (0.0-1.0); %Eosinophils 1.9 % (0.0-10.0); %Lymphocytes 13.7 % (21.0-51.0); %Monocytes 14.9 % (0.0-10.0); %Neutrophils 69.1 % (42.0-75.0); Mean Corpuscular HGB CONC 31.9 g/dL (32.0-36.0); Mean Corpuscular Hemoglobin 25.4 pg (27.0-31.0); Mean Corpuscular Volume 79.8 fL (78.0-98.0); Mean Platelet Volume 9.9 fL (7.4-10.4); Platelet Count 144 thou/uL (130-400); Red Blood Cell (RBC) Count 3.53 mill/uL (4.70-6.10); White Blood Cell (WBC) Count 8.7 thou/uL (4.8-10.8)
[2020-04-30 05:10] LABS: Anion Gap 8 mmol/L (10-20); BUN (Urea Nitrogen) 17 mg/dL (8.4-25.7); Calc. Creatinine Clearance 111 mL/min (70-130); Calcium 8.1 mg/dL (7.8-10.44); Carbon Dioxide 28 mmol/L (23-31); Chloride 109 mmol/L (98-107); Estimated GFR-MDRD 85; Glucose 100 mg/dL (80-115); Potassium 3.8 mmol/L (3.5-5.1); Sodium 141 mmol/L (136-145)
[2020-04-30] MEDS: Docusate 100 MG CAP PO SCH ×2 (08:55→20:41)
[2020-04-30] MEDS: Carvedilol 6.25 MG TAB PO SCH ×2 (08:55→16:44)
[2020-04-30] MEDS: Ferrous Sulfate 325 MG TAB PO SCH (08:55)
[2020-04-30] MEDS: Aspirin Chewable 81 MG TAB PO SCH (08:55)
[2020-04-30] MEDS ORDERED: Lisinopril 10 MG TAB PO SCH ×2 (09:00→15:45)
--- NOTE | 2020-04-30 15:41 | PDOC.CPN ---
- Subjective Date: 04/30/20 Time: 15:40 Interval history: He is doign well. Passing gas, no BM yet but huang snot feel bloated or nasueated , eating well. Working with PT. - Review of Systems General: denies: fever/chills, weight/appetite/sleep changes, night sweats, fatigue Respiratory: denies: cough, congestion, shortness of breath, exercise intolerance Cardiovascular: denies: chest pain, palpitation, edema, paroxysmal nocturnal dyspnea, orthopnea Gastrointestinal: denies: nausea, vomiting, diarrhea, constipation, abd pain, GI bleeding Musculoskeletal: denies: pain, tenderness, stiffness, swelling, arthritis/ arthralgias Neurological: denies: numbness, syncope, seizure, weakness - Objective Allergies/Adverse Reactions: Allergies Allergy/AdvReac Type Severity Reaction Status Date / Time clonidine Allergy Verified 04/21/20 19:44 Visit Medications: Current Medications Hydrocodone Bitart/Acetaminophen ([place] 5/325) 1 tab PO Q4H PRN PRN Reason: Moderate Pain (4-6) Hydrocodone Bitart/Acetaminophen ([place] 5/325) 2 tab PO Q4H PRN PRN Reason: Severe Pain (7-10) Last Admin: 04/30/20 13:21 Dose: 2 tab Al Hydroxide/Mg Hydroxide (Maalox) 30 ml PO Q4H PRN PRN Reason: Indigestion Albuterol/Ipratropium (Duoneb) 3 ml NEB [id number] PRN PRN Reason: SHORTNESS OF BREATH Amlodipine Besylate (Norvasc) 5 mg PO DAILY [facility] Amlodipine Besylate (Norvasc) 5 mg PO ONE [facility] Artificial Tears (Tears Naturale) 0 drop EA EYE PRN PRN PRN Reason: Dry Eyes Aspirin (Aspirin Chewable) 81 mg PO DAILY [facility] Last Admin: 04/30/20 08:55 Dose: 81 mg Bisacodyl (Dulcolax) 10 mg PO Q12H PRN PRN Reason: Constipation Bisacodyl (Dulcolax) 10 mg MT Q12H PRN PRN Reason: Constipation Carvedilol (Coreg) 12.5 mg PO BID-[facility] Diphenhydramine HCl (Benadryl) 25 mg PO Q6H PRN PRN Reason: Itching & Insomnia or Tito Manuel Docusate Sodium (Colace) 100 mg PO BID [facility] Last Admin: 04/30/20 08:55 Dose: 100 mg Ferrous Sulfate (Feosol) 325 mg PO QAM-[facility] Last Admin: 04/30/20 08:55 Dose: 325 mg Guaifenesin/Dextromethorphan (Robitussin Dm) 15 ml PO Q4H PRN PRN Reason: Cough Lisinopril (Zestril) 20 mg PO DAILY [facility] Lisinopril (Zestril) 10 mg PO ONE [facility] Mineral Oil (Fleet Mineral Oil) 133 ml MT DAILYPRN PRN PRN Reason: Constipation Morphine Sulfate (Morphine) 2 mg SLOW IVP Q4H PRN PRN Reason: Breakthrough Pain Last Admin: 04/29/20 08:48 Dose: 2 mg Nitroglycerin (Nitrostat) 0.4 mg SL Q5MIN PRN PRN Reason: Chest Pain Ondansetron HCl (Zofran) 4 mg IVP Q6H PRN PRN Reason: Nausea/Vomiting Sodium Chloride (Flush - Normal Saline) 10 ml IVF Q12HR [facility] Last Admin: 04/30/20 08:55 Dose: 10 ml Zolpidem Tartrate (Ambien) 5 mg PO HSPRN PRN PRN Reason: Insomnia Vital Signs & Weight: Vital Signs Temp Pulse Resp BP BP Pulse Ox 04/30/20 11:27 73 166/81 H 04/30/20 08:55 182/81 H 04/30/20 08:47 68 171/82 H 04/30/20 08:00 96 04/30/20 07:43 98.0 F 77 20 182/81 H 96 04/30/20 04:00 98.1 F 75 16 135/57 L 95 Weight 245 lb 11.2 oz - Physical Exam General: alert & oriented x3 HEENT: mucus membranes moist Neck: supple neck Cardiac: regular rate and rhythm Lungs: clear to auscultation Neuro: grossly intact Abdomen: active bowel sounds, non-tender, distended Extremities: no edema Skin: clear Musculoskeletal: no pain - Labs Result Diagrams: 04/30/20 04:38 04/30/20 04:38 - Telemetry Sinus rhythms and dysrhythmias: sinus rhythm - Assessment/Plan Assessment/Plan: 1. Multivessel CAD. 2. S/P CABG x 4 3. HTN PLAN: - Continue PT and increase as tolerated. - Needs better BP control. - Increase ACEI to 20 mg daily - Restart Amlodipine at 5 mg daily and increase coreg to 12.5 mg BID.
[2020-04-30] MEDS ORDERED: Amlodipine 5 MG TAB PO SCH (15:45)
[2020-05-01] MEDS: HYDROcodone/Acetaminophen 5/325 mg Tablet PO PRN (03:29)
[2020-05-01 08:17] VITALS: BP 172/82; TEMP 98.8
[2020-05-01] MEDS ORDERED: Lisinopril 20 MG TAB PO SCH (09:00)
[2020-05-01] MEDS ORDERED: Amlodipine 5 MG TAB PO SCH (09:00)
[2020-05-01] MEDS: Carvedilol 6.25 MG TAB PO SCH (09:03)
[2020-05-01] MEDS: Aspirin Chewable 81 MG TAB PO SCH (09:04)
[2020-05-01] MEDS: Docusate 100 MG CAP PO SCH (09:04)
[2020-05-01] MEDS: Ferrous Sulfate 325 MG TAB PO SCH (09:05)
--- NOTE | 2020-05-02 13:53 | DIS ---
DATE OF ADMISSION: 04/27/2020 DATE OF DISCHARGE: 05/01/2020 PROCEDURES PERFORMED: Coronary artery bypass grafting x4 with left internal mammary artery to the distal left anterior descending artery, sequential reverse greater saphenous vein graft from the aorta to the first diagonal to the posterolateral obtuse marginal 2 and reverse greater saphenous vein graft from aorta to the posterior descending artery. HISTORY OF PRESENT ILLNESS AND HOSPITAL COURSE: The patient is a 64-year-old man with severe hypertension and known coronary artery disease. On a routine checkup, he was noted to be somewhat bradycardic and was referred back to his electronic drafter. At the time, he had a LVEF of 60% to 65% and LVH on echocardiography, and Holter monitoring showed some occasional PVCs and 4 runs of nonsustained SVT. Nuclear stress testing, however, showed a reversible perfusion defect anteriorly and on cardiac catheterization, he was found to have 3-vessel coronary artery disease, most prominently involving a cleft like lesion in the LAD at the point where a fairly large diagonal and the first septal tobacco sizer came off it. He had some modest asymptomatic carotid disease on ultrasonography with the left side falling in to a 50% to 69% stenotic category and the right being less than 50%. He was admitted through same-day surgery and underwent coronary artery bypass grafting. At the time of surgery, he was found to have severely diseased vessels and a very large heart that made some of the exposure difficult. He did well; however, was extubated in the operating room and initially required atrial pacing for a relatively slow heart rate and IV nitroglycerin to control hypertension. His nitroglycerin was weaned off during the night of surgery and on postoperative day #1, his underlying rate and rhythm was a sinus rhythm in the mid 70s with quadrigeminy. His creatinine on postoperative day #1 was 1.74, slightly higher than his baseline of about 1.35 to 1.55, so he was left on IV fluids. He was restarted on Coreg 3.125 mg b.i.d. that day, which was half of his preoperative dose. His Norvasc and lisinopril were held. He was transferred out of the intensive care unit and on postoperative day #2, his heart rate was still in the 60% to 75% range, and his blood pressure was starting to creep up in the 125 to 155 range systolic. His creatinine was down to 1.44. His IV fluids were stopped, and his Coreg was increased to his preop dose of 6.25 mg b.i.d. His mediastinal tube output had significantly diminished, and by that afternoon, had put out a trivial amount compared to the morning rounds and his tubes and pacing wires were removed. Lisinopril was added and increased up to 20 mg a day, and on postoperative day #4, he was discharged to home, on: 1. Coreg 6.25 mg b.i.d. 2. Lisinopril 20 mg a day. 3. Norvasc 5 mg a day. 4. Baby aspirin a day. 5. He is to resume his preoperative dose of Crestor 20 mg a day. 6. He was given a prescription for [place] as needed for pain. Job ID: [id number]
== END 2020-05-01 10:52 | disposition home or self-care (01) | DRG 236 ==
LOC: SURG A 04-27 05:50 → CCU 04-27 08:30 → 2NO 04-28 12:49
PROVIDERS: ADMIT Thoracic Surgery (Cardiothoracic Vascular Surgery); ATTEND Thoracic Surgery (Cardiothoracic Vascular Surgery)
PROC: 02100Z9 Bypass Coronary Artery, One Artery from Left Internal Mammary, Open Approach (ICD-10-PCS; principal; 2020-04-27)
PROC: 021209W Bypass Coronary Artery, Three Arteries from Aorta with Autologous Venous Tissue, Open Approach (ICD-10-PCS; 2020-04-27)
PROC: 5A1221Z Performance of Cardiac Output, Continuous (ICD-10-PCS; 2020-04-27)
PROC: 06BQ4ZZ Excision of Left Saphenous Vein, Percutaneous Endoscopic Approach (ICD-10-PCS; 2020-04-27)
DX: I25.119 Atherosclerotic heart disease of native coronary artery with unspecified angina pectoris (principal); Z11.59 Encounter for screening for other viral diseases; M17.0 Bilateral primary osteoarthritis of knee; I25.10 Atherosclerotic heart disease of native coronary artery without angina pectoris; I12.9 Hypertensive chronic kidney disease with stage 1 through stage 4 chronic kidney disease, or unspecified chronic kidney disease; N18.2 Chronic kidney disease, stage 2 (mild); R09.89 Other specified symptoms and signs involving the circulatory and respiratory systems; G51.0 Bell's palsy; J30.9 Allergic rhinitis, unspecified; I73.9 Peripheral vascular disease, unspecified; Z87.891 Personal history of nicotine dependence; Z79.899 Other long term (current) drug therapy; Z88.8 Allergy status to other drugs, medicaments and biological substances; Z79.82 Long term (current) use of aspirin; Z95.5 Presence of coronary angioplasty implant and graft
CPT/HCPCS: 36416; 71045; 80048; 82805; 85025; 85610; 85730; 86850; 86900; 86901; 87635; 93005; 93010; 93798; 97139; J0690; J1642; J1644; J1815; J1885; J2001; J2250; J2270; J2405; J2440; J2720; J3010; J3370; J3475; J3480; P9016; P9045; S0017; S0028; U0003